=== PATIENT | female | born 1930 | race Caucasian/White ===

== ENCOUNTER 2018-06-21 17:09 | Inpatient (IN) ==
--- NOTE | 2018-06-21 17:26 | ED ---
HPI General Chief Complaint: Fall Stated Complaint: fall Time Seen by Provider: 06/21/18 17:13 Source: patient and EMS Mode of arrival: EMS Limitations: other (poor historian) History of Present Illness HPI narrative: 87 y/o female presents by ambulance after she had a witnessed fall in the lobby. She states her legs were just working too hard and she fell. She states she did not hit her head or blackout. She states she has pain to her left butt. She denies pain anywhere else. Pain is worse with movement. She denies other modifying factors. Quality of pain is sharp. Related Data Allergies Allergy/AdvReac Type Severity Reaction Status Date / Time No Known Allergies Allergy Uncoded 09/01/14 00:50 Review of Systems ROS: all other systems reviewed are negative PMFSH History History Provided By: Patient (Macular degeneration per EMS, dementia) Medical History Medical History Breast cancer (Acute) COPD (chronic obstructive pulmonary disease) (Acute) Dementia (Acute) Macular degeneration (Acute) Pelvis fracture (Acute) Smoker (Acute) Social History Social History Substance History: No History of Abuse Smoking Status: Current every day smoker Tobacco Type: Cigarettes How Often Do You Have a Drink Containing Alcohol: Monthly or less Recent Out of Country Travel within the Last 8 Weeks: No Exam Narrative Exam Narrative: General: 87 y/o patient in no apparent distress Skin: warm and dry Eyes: pupils are equal ENT: no septal hematoma NECK: no pain with palpation in midline over c spine Cardiovascular: Regular rate and rhythm Respiratory: normal respiratory effort noted, clear to auscultation bilaterally Abdomen: soft, nontender, nondistended Back: No step-offs, midline spine nontender with palpation Extremities: Pain with palpation of left hip, no lacerations over, neurovascularly intact, no pain with palpation of other joints Neuro: awake, moves all extremities, clear speech Course Initial Documented Vital Signs Temperature 97.5 F L 06/21/18 17:22 Pulse Rate 74 06/21/18 17:22 Respiratory Rate 18 06/21/18 17:22 Blood Pressure 152/68 H 06/21/18 17:22 Pulse Oximetry 94 L 06/21/18 17:22 Last Documented Vital Signs Temperature 97.5 F L 06/21/18 17:22 Pulse Rate 74 06/21/18 17:22 Respiratory Rate 18 06/21/18 17:22 Blood Pressure 152/68 H 06/21/18 17:22 Pulse Oximetry 94 L 06/21/18 17:22 Medical Decision Making MDM Narrative Medical decision making narrative: We will check basic blood work, trauma imaging and reevaluate. Medical Screen Exam Complete: Yes Emergency Medical Condition: Yes Differential Diagnosis Differential Diagnosis: Fracture, strain, sprain Imaging Data Radiologist's impression: Chest X-Ray 06/21/18 17:18 CONCLUSION: 1. Hyperinflation and chronic interstitial changes. 2. Lytic areas within both humeral heads of uncertain etiology. Recommend radiographs of the shoulders bilaterally. Femur X-Ray 06/21/18 17:18 CONCLUSION: No acute fracture left femur. Head CT 06/21/18 17:19 CONCLUSION: 1. No acute findings. . . Pelvis X-Ray 06/21/18 17:19 CONCLUSION: No definite fracture seen. Discharge Plan Discharge Disposition Patient Disposition: Sign Out(ED Internal Use Only) Physicians Team ED Provider: Shahnaz Yeung Status ED Status: With Doctor
--- NOTE | 2018-06-21 18:00 | XR ---
EXAM DATE: 06/21/2018 5:56 PM EST AGE/SEX: 87 years / Female INDICATIONS: Back and bilateral hip pain from a fall today. CLINICAL DATA: This is the patient's initial encounter. Patient reports that signs and symptoms have been present for 1 day and indicates a pain score of 10/10. MEDICAL/SURGICAL HISTORY: None. None. COMPARISON: No prior exams available for comparison. FINDINGS: A single AP view of the chest demonstrates hyperinflation with chronic interstitial changes. Mild car diomegaly The cardiomediastinal contours are unremarkable. Osseous structures are intact. Both humer al heads are lucent. CONCLUSION: 1. Hyperinflation and chronic interstitial changes. 2. Lytic areas within both humeral heads of uncertain etiology. Recommend radiographs of the shoulde rs bilaterally. Electronically signed by: Girish Vargas MD Board Certified Radiologist 06/21/2018 5:59 PM EST
--- NOTE | 2018-06-21 18:00 | XR ---
EXAM DATE: 06/21/2018 5:56 PM EST AGE/SEX: 87 years / Female INDICATIONS: Back and bilateral hip pain from a fall today. CLINICAL DATA: This is the patient's initial encounter. Patient reports that signs and symptoms have been present for 1 day and indicates a pain score of 10/10. MEDICAL/SURGICAL HISTORY: None. None. COMPARISON: [facility] [place], PELVIS AP 1V, 06/21/2018. . FINDINGS: Bony structures are intact and in normal alignment. Osseous density is normal. Soft tissues are unre markable. Vascular calcifications. No radiopaque foreign bodies seen. CONCLUSION: No acute fracture left femur. Electronically signed by: Girish Vargas MD Board Certified Radiologist 06/21/2018 5:59 PM EST
--- NOTE | 2018-06-21 18:01 | XR ---
EXAM DATE: 06/21/2018 5:56 PM EST AGE/SEX: 87 years / Female INDICATIONS: Back and bilateral hip pain from a fall today. CLINICAL DATA: This is the patient's initial encounter. Patient reports that signs and symptoms have been present for 1 day and indicates a pain score of 10/10. MEDICAL/SURGICAL HISTORY: None. None. COMPARISON: [facility] [place], FEMUR LEFT 2V, 06/21/2018. . FINDINGS: Examination of the pelvis demonstrates no evidence of fracture or dislocation. Bony mineralization i s normal. There is no widening of the sacroiliac joints. No foreign body is identified. Degenerativ e changes lower lumbar spine and both hips. CONCLUSION: No definite fracture seen. Electronically signed by: Girish Vargas MD Board Certified Radiologist 06/21/2018 6:00 PM EST
--- NOTE | 2018-06-21 18:29 | CT ---
EXAM DATE: 06/21/2018 6:27 PM EST AGE/SEX: 87 years / Female INDICATIONS: Trauma, head injury. CLINICAL DATA: This is the patient's initial encounter. Patient reports that signs and symptoms have been present for 1 day and indicates a pain score of 7/10. MEDICAL/SURGICAL HISTORY: Carcinoma, breast. Chronic obstructive pulmonary disease. None. RADIATION DOSE: 56.35 CTDI (mGy) COMPARISON: [facility], CT BRAIN W/O CONTRAST, 04/03/2018. . TECHNIQUE: CT of the head without contrast. Using automated exposure control and adjustment of the mA and/or kV according to patient size, radiation dose was kept as low as reasonably achievable to ob tain optimal diagnostic quality images. DICOM format image data is available electronically for revi ew and comparison. FINDINGS: Cerebrum: The ventricles are normal for age. No evidence of midline shift, mass lesion, hemorrhage or acute infarction. No extraaxial fluid collections are seen. Posterior Fossa: The cerebellum and brainstem are intact. The 4th ventricle is midline. The cerebe llopontine angle is unremarkable. Extracranial: The visualized portion of the orbits is intact. Skull: The calvaria is intact. No evidence of skull fracture. CONCLUSION: 1. No acute findings. . . Electronically signed by: Fidel Campbell MD Board Certified Radiologist 06/21/2018 6:28 PM EST
[2018-06-21 19:38] LABS: Baso % (Auto) 0.2 % (0.0-2.0); Eos # (Auto) 0.1 th/mm3 (0.0-0.4); Eos % (Auto) 0.7 % (0.0-4.0); Hematocrit 37.8 % (35.0-46.0); Hemoglobin 12.9 gm/dL (11.6-15.3); Lymph % (Auto) 9.7 % (9.0-44.0); Mean Corpuscular HGB Conc 34.1 % (32.0-36.0); Mean Corpuscular Hemoglobin 30.2 pg (27.0-34.0); Mean Corpuscular Volume 88.7 fL (80.0-100.0); Mean Platelet Volume 7.7 fL (7.0-11.0); Mono # (Auto) 0.8 th/mm3 (0.0-0.9); Mono % (Auto) 7.9 % (0.0-8.0); Neut # (Auto) 8.4 th/mm3 (1.8-7.7); Neut % (Auto) 81.5 % (16.0-70.0); Platelet Count 315 th/mm3 (150-450); Red Blood Count 4.26 mil/mm3 (4.00-5.30); Red Cell Distribution Width 13.9 % (11.6-17.2); White Blood Count 10.3 th/mm3 (4.0-11.0)
--- NOTE | 2018-06-21 19:39 | XR ---
EXAM DATE: 06/21/2018 7:31 PM EST AGE/SEX: 87 years / Female INDICATIONS: Lytic areas found on previous chest x-ray on bilateral humeral heads. CLINICAL DATA: This is the patient's subsequent encounter. Patient reports that signs and symptoms h ave been present for 1 day and indicates a pain score of 0/10. MEDICAL/SURGICAL HISTORY: Carcinoma, lung. Chronic obstructive pulmonary disease. None. COMPARISON: No prior exams available for comparison. FINDINGS: Bony structures are intact and in normal alignment. Joints are intact without dislocation or signifi cant arthropathy. Osseous density is decreased. Soft tissues are unremarkable. No radiopaque foreig n bodies seen. CONCLUSION: No acute findings. Lucencies are probably related to patchy osteopenia. Electronically signed by: Fidel Campbell MD Board Certified Radiologist 06/21/2018 7:38 PM EST
--- NOTE | 2018-06-21 19:39 | XR ---
EXAM DATE: 06/21/2018 7:32 PM EST AGE/SEX: 87 years / Female INDICATIONS: Lytic areas found on previous chest x-ray on bilateral humeral heads. CLINICAL DATA: This is the patient's subsequent encounter. Patient reports that signs and symptoms h ave been present for 1 day and indicates a pain score of 0/10. MEDICAL/SURGICAL HISTORY: Carcinoma, lung. Chronic obstructive pulmonary disease. None. COMPARISON: [facility] [place], [place] HEAD W/O CONTRAST, 06/21/2018. . FINDINGS: Bony structures are intact and in normal alignment. Joints are intact without dislocation or signifi cant arthropathy. Osseous density is decreased with patchy osteopenia. Soft tissues are unremarkable . No radiopaque foreign bodies seen. CONCLUSION: No acute findings. Lucencies are probably related to patchy osteopenia. Electronically signed by: Fidel Campbell MD Board Certified Radiologist 06/21/2018 7:38 PM EST
--- NOTE | 2018-06-21 19:49 | CT ---
EXAM DATE: 06/21/2018 7:41 PM EST AGE/SEX: 87 years / Female INDICATIONS: Fall. Left hip pain with possible fracture. CLINICAL DATA: This is the patient's initial encounter. Patient reports that signs and symptoms have been present for 1 day and indicates a pain score of 10/10. MEDICAL/SURGICAL HISTORY: Carcinoma, breast. Chronic obstructive pulmonary disease. Diabetes. . RADIATION DOSE: 19.11 CTDI (mGy) COMPARISON: No prior exams available for comparison. TECHNIQUE: Multiple contiguous axial images were acquired using a multirow detector CT scanner witho ut contrast. Multiplanar reconstruction was performed in the sagittal and coronal planes. Using aut omated exposure control and adjustment of the mA and/or kV according to patient size, radiation dose was kept as low as reasonably achievable to obtain optimal diagnostic quality images. DICOM format i mage data is available electronically for review and comparison. FINDINGS: There is a fracture of the superior pubic ramus with minimal displacement. Also probable acute fractu res on both sides of the pubic symphysis relatively nondisplaced. There is an old fracture of the inf erior pubic ramus. Proximal femur appears intact. CONCLUSION: 1. Nondisplaced fractures at the pubic symphysis and left superior pubic ramus as above. No fracture identified at the left hip. Old fracture inferior pubic ramus. Electronically signed by: Fidel Campbell MD Board Certified Radiologist 06/21/2018 7:47 PM EST
[2018-06-21 19:50] LABS: Calcium 9.8 mg/dL (8.5-10.1); Carbon Dioxide 26.9 meq/L (21.0-32.0); Potassium 4.3 meq/L (3.5-5.1)
[2018-06-21 19:53] LABS: Activated Partial Thrombo Time 26.1 sec (23.4-31.7); INR 0.9 Ratio; Prothrombin Time 9.3 sec (9.8-11.6)
[2018-06-21] MEDS ORDERED: Morphine Sulfate Inj 2 MG/ML Vial IV.PUSH ONE (19:55)
[2018-06-21 19:56] LABS: Bilirubin,Urine Negative (Negative); Clarity,Urine Clear (Clear); Color,Urine Yellow (Yellw/Straw); Glucose,Urine (UA) Negative (Negative); Leukocyte Esterase,Urine Negative (Negative); Mucus,Urine Few /lpf (Occasional); Nitrite,Urine Negative (Negative); Specific Gravity,Urine 1.009 (1.002-1.035)
[2018-06-21] MEDS ORDERED: Acetaminophen 325 MG Tablet PO PRN (21:19)
[2018-06-21] MEDS ORDERED: Bisacodyl 10 MG Supp RECTAL PRN (21:19)
[2018-06-21] MEDS ORDERED: Morphine Sulfate Inj 2 MG/ML Vial IV.PUSH PRN (21:21)
[2018-06-21] MEDS ORDERED: Naloxone Inj 0.4 MG/ML Vial IV.PUSH PRN (21:21)
--- NOTE | 2018-06-21 21:23 | P.HPIM ---
History of Present Illness Primary Care Physician: Marisol Gonzalez DO History of Present Illness: This is a 87-year-old female with a PMH of Dementia , COPD, h/o Breast CA and Tobacco Abuse who was brought to the ER from SNF after witnessed fall. Pt reports legs "stopped working" and had mechanical fall , denies LOC or head trauma. +left buttock/hip pain, moderate, 8/10, non- radiating, worse w/ movement. On arrival, BP 152/68, HR 74, O2 sat 94% on RA, Afebrile. CBC unremarkable. INR 0.9. Chemistry essentially unremarkable except for GFR 77. UA negative for UTI. CXR with hyperinflation, lytic areas of bilateral humeral heads. Femur X-ray negative. CT Head negative. Pelvis X- ray with no definite fracture. Shoulder X-rays with no acute findings, lucencies probably related to patchy osteopenia. T Hip with nondisplaced fractures of pubic symphysis and left superior pubic ramus. Pt attempted ambulation in ER, however unsuccessful due to significant pain. Diagnosis (1) Closed fracture of pubic ramus: (2) Fall: (3) Dehydration: (4) HTN (hypertension): (5) COPD (chronic obstructive pulmonary disease): (6) Tobacco abuse: Review of Systems PAST FAMILY HISTORY: Reviewed. No h/o DM or CAD Review of Systems: all other systems reviewed are negative [facility] Medical History Medical History Breast cancer (Acute) COPD (chronic obstructive pulmonary disease) (Acute) Dementia (Acute) Macular degeneration (Acute) Pelvis fracture (Acute) Smoker (Acute) Social History Social History Substance History: No History of Abuse Smoking Status: Current every day smoker Tobacco Type: Cigarettes How Often Do You Have a Drink Containing Alcohol: Monthly or less Recent Out of Country Travel within the Last 8 Weeks: No Immunization History Tetanus Immunization: Unsure Medications and Allergies Allergies Allergy/AdvReac Type Severity Reaction Status Date / Time erythromycin base Allergy Hives Verified 06/21/18 21:38 Home Medications Medication Instructions Recorded Confirmed Type alendronate 70 mg PO QWEEK 06/21/18 06/21/18 History aspirin [Aspirin Low Dose] 81 mg PO DAILY 06/21/18 06/21/18 History donepezil [Aricept] 10 mg PO DAILY 06/21/18 06/21/18 History levothyroxine 50 mcg PO DAILY 06/21/18 06/21/18 History Active Medications: Active Medications Acetaminophen (Tylenol) 650 mg PO Q4H PRN PRN Reason: Temp > 100.4 Hydrocodone Bitart/Acetaminophen ([place] 5/325) 1 tab PO Q4H PRN PRN Reason: PAIN SCALE 3 TO 5 Al Hydroxide/Mg Hydroxide (Milk Of Magnesia Liq) 30 ml PO Q12H PRN PRN Reason: Mild Constipation Bisacodyl (Dulcolax Supp) 10 mg RECTAL DAILY PRN PRN Reason: SEVERE CONSITIPATION Sodium Chloride (Ns Inj) 1,000 mls @ 100 mls/hr IV.CONT .Q10H CORINNE Lactulose (Lactulose Liq) 30 ml PO DAILY PRN PRN Reason: SEVERE CONSITIPATION Levothyroxine Sodium (Synthroid) 50 mcg PO DAILY [facility] Morphine Sulfate (Morphine Inj) 2 mg IV.PUSH Q4H PRN PRN Reason: PAIN SCALE 6 TO 10 Naloxone HCl (Narcan Inj) 0.4 mg IV.PUSH UNSCH PRN PRN Reason: SEE LABEL COMMENTS Non-Formulary Medication (Donepezil [Aricept]) 10 mg PO DAILY [facility] Senna/Docusate Sodium (Herminia-Colace) 1 tab PO BID [facility] Sennosides (Senokot) 17.2 mg PO Q12H PRN PRN Reason: Moderate Constipation Sodium Chloride (Ns Flush) 2 ml IV.FLUSH UNSCH PRN PRN Reason: FLUSH AFTER USING IV ACCESS Sodium Chloride (Ns Flush) 2 ml IV.FLUSH BID [facility] Physical Exam Vital signs: Vital Signs 06/21/18 17:17 06/21/18 17:22 06/21/18 17:28 Temperature 97.5 F L Pulse Rate 74 80 Respiratory Rate 18 20 Blood Pressure 152/68 H 148/60 H Pulse Oximetry 95 94 L 96 06/21/18 21:22 Temperature Pulse Rate 74 Respiratory Rate 18 Blood Pressure 153/62 H Pulse Oximetry 95 Intake & Output 06/21/18 06/21/18 06/22/18 06:59 18:59 06:59 Weight 63.503 kg Narrative: PE: GENERAL: Elderly female in no acute distress. SKIN: Focused skin assessment warm and dry. HEENT: PERRLA, EOMI. No scleral icterus or conjunctival pallor. No lid lag or facial droop. CARDIOVASCULAR: Regular rate and rhythm. No obvious murmurs to auscultation. No chest tenderness to palpation. RESPIRATORY: No obvious rhonchi or wheezing. Clear to auscultation. Breath sounds equal bilaterally. GASTROINTESTINAL: Abdomen soft, non-tender, nondistended. BS normal. MUSCULOSKELETAL: Extremities without clubbing, cyanosis, or edema. No obvious deformities. Decreased ROM of LLE due to pain. NEUROLOGICAL: Awake, alert and oriented x4. No focal neurologic deficits. Moving both upper and lower extremities spontaneously. PSYCHIATRIC: Appropriate mood and affect. Insight and judgment normal. Results Labs CBC & Chem 7: 06/21/18 18:40 06/21/18 18:40 Imaging Impressions Chest X-Ray 06/21/18 17:18 CONCLUSION: 1. Hyperinflation and chronic interstitial changes. 2. Lytic areas within both humeral heads of uncertain etiology. Recommend radiographs of the shoulders bilaterally. Femur X-Ray 06/21/18 17:18 CONCLUSION: No acute fracture left femur. Head CT 06/21/18 17:19 CONCLUSION: 1. No acute findings. . . Pelvis X-Ray 06/21/18 17:19 CONCLUSION: No definite fracture seen. Shoulder X-Ray 06/21/18 18:05 CONCLUSION: No acute findings. Lucencies are probably related to patchy osteopenia. Shoulder X-Ray 06/21/18 18:05 CONCLUSION: No acute findings. Lucencies are probably related to patchy osteopenia. Hip CT 06/21/18 19:02 CONCLUSION: 1. Nondisplaced fractures at the pubic symphysis and left superior pubic ramus as above. No fracture identified at the left hip. Old fracture inferior pubic ramus. Caprini VTE Risk Assessment Caprini VTE Risk Assessment: No/Low Risk (score <= 1) Caprini Risk Assessment Model: Point Value = 1 Point Value = 2 Point Value = 3 Point Value = 5 Age 41-60 Minor surgery BMI > 25 kg/m2 Swollen legs Varicose veins or History of unexplained or recurrent spontaneous Oral contraceptives or hormone replacement Sepsis (< 1 month) Serious lung disease, including pneumonia (< 1 month) Abnormal pulmonary function Acute myocardial infarction Congestive heart failure (< 1 month) History of inflammatory bowel disease Medical patient at bed rest Age 61-74 Arthroscopic surgery Major open surgery (> 45 min) Laparoscopic surgery (> 45 min) Malignancy Confined to bed (> 72 hours) Immobilizing plaster cast Central venous access Age >= 75 History of VTE Family history of VTE Factor V Leiden Prothrombin [id number] Lupus anticoagulant Anticardiolipin antibodies Elevated serum homocysteine Heparin-induced thrombocytopenia Other congenital or acquired thrombophilia Stroke (< 1 month) Elective arthroplasty Hip, pelvis, or leg fracture Acute spinal cord injury (< 1 month) Prophylaxis Regimen: Total Risk Factor Score Risk Level Prophylaxis Regimen 0-1 Low Early ambulation 2 Moderate Order ONE of the following: *Sequential Compression Device (SCD) *Heparin 5000 units SQ BID 3-4 Higher Order ONE of the following medications: *Heparin 5000 units SQ TID *Enoxaparin/Lovenox 40 mg SQ daily (WT < 150 kg, CrCl > 30 mL/min) *Enoxaparin/Lovenox 30 mg SQ daily (WT < 150 kg, CrCl > 10-29 mL/min) *Enoxaparin/Lovenox 30 mg SQ BID (WT < 150 kg, CrCl > 30 mL/min) AND/OR *Sequential Compression Device (SCD) 5 or more Highest Order ONE of the following medications: *Heparin 5000 units SQ TID (Preferred with Epidurals) *Enoxaparin/Lovenox 40 mg SQ daily (WT < 150 kg, CrCl > 30 mL/min) *Enoxaparin/Lovenox 30 mg SQ daily (WT < 150 kg, CrCl > 10-29 mL/min) *Enoxaparin/Lovenox 30 mg SQ BID (WT < 150 kg, CrCl > 30 mL/min) AND *Sequential Compression Device (SCD) Assessment and Plan (1) Closed fracture of pubic ramus: Code(s): S32.599A - Other specified fracture of unspecified pubis, initial encounter for closed fracture Status: Acute (2) Fall: Code(s): W19.XXXA - Unspecified fall, initial encounter Status: Acute (3) Dehydration: Code(s): E86.0 - Dehydration Status: Acute (4) HTN (hypertension): Code(s): I10 - Essential (primary) hypertension Status: Acute (5) COPD (chronic obstructive pulmonary disease): Code(s): J44.9 - Chronic obstructive pulmonary disease, unspecified Status: Acute (6) Tobacco abuse: Code(s): Z72.0 - Tobacco use Status: Acute Plan A/P 1. Fall: s/p witnessed mechanical fall at SNF, no LOC or head trauma reported , no other injuries noted. CT Head w/ no acute findings. 2. Pubic Fx: Pelvis X-ray w/ no acute fracture, however CT Hip w/ nondisplaced fractures at pubic symphysis and left superior pubic ramus, pt attempted ambulation in ER, however unsuccessful due to significant pain. Consult Ortho for eval/recommendations, PT for eval/tx, analgesics/antiemetics as needed. 3. HTN: Uncontrolled, BP 150's, not on antihypertensives at home, likely related to pain complaints, monitor BP, antihypertensives as needed for BP >180 , anagelsics. 4. Dehydration: GFR 77, IVF for hydration, monitor I/O, repeat labs in am, U/ a negative for UTI. 5. COPD: Chronic Respiratory Failure, DuoNeb prn 6. Tobacco Abuse: Ongoing, counselled, NicoDerm prn if needed. 7. DVT Prophylaxis: SCD/Teds 8. Social work for d/c planning as needed. 9. Case discussed w/ ER physician at length, labs/records/imaging reviewed by me. _ (1) Closed fracture of pubic ramus Qualifiers: Encounter type: Fracture healing: Laterality:
[2018-06-22] MEDS: Sod Chloride 0.9% Inj 1,000 ML IV.CONT SCH ×3 (01:55→19:40)
--- NOTE | 2018-06-22 06:59 | P.CONOP ---
[facility] Orthopedics Consult Note - [facility] Consult date: 06/22/18 Chief complaint: Pubis FX Narrative: Anusha is an 87-year-old female with a history of dementia, COPD, breast cancer, and tobacco abuse. She has a fall. She states that the fall was a couple of days ago. She has had difficulty walking. She has pain in her left hip and groin when she walks. She is brought to the emergency room. CT scan revealed a left pubic rami fractures. She is currently on the orthopedic floor. She has no pain at rest. She has pain with movement of her hip or with weightbearing. She denies any hip pain prior to her fall. Review of Systems Patient denies fevers, chills, weight loss, headache, visual changes, hearing loss, chest pain, palpitations, shortness of breath, nausea, vomiting, no urinary changes, diarrhea, bowel changes, neck pain, back pain, skin rashes, weakness of extremities, easy bleeding, enlarged lymph nodes, numbness of extremities, anxiety, or depression. She complains of left groin pain with weightbearing Patient's social history, past medical history, and family history were reviewed on chart and with patient. [facility] - History History Provided By: Patient - Medical History Medical History: Medical History (Last Reviewed 06/22/18 @ 06:57 by Freddy Ga MD) Breast cancer COPD (chronic obstructive pulmonary disease) Dementia Macular degeneration Pelvis fracture Smoker - Family History Family History: Family History (Last Updated 06/22/18 @ 06:57 by Freddy Ga MD) Other Family history non-contributory - Social History I have reviewed the patient's Social History: Yes - Tobacco History Second Hand Smoke Exposure: No Tobacco Use In Past 30 Days: Yes Smoking Status: Current every day smoker Tobacco Type: Cigarettes - Alcohol History How Often Do You Have a Drink Containing Alcohol: 2 to 4 times a month - Substance Use History Substance History: No History of Abuse - Travel History Recent Travel Out of the Country Within the Last 8 Weeks: No - Immunization History Tetanus Immunization: Unsure Hx Influenza Vaccine This Season: Yes Medications and Allergies Active Medications: Active Medications Acetaminophen (Tylenol) 650 mg PO Q4H PRN PRN Reason: Temp > 100.4 Hydrocodone Bitart/Acetaminophen ([place] 5/325) 1 tab PO Q4H PRN PRN Reason: PAIN SCALE 3 TO 5 Al Hydroxide/Mg Hydroxide (Milk Of Magnesia Liq) 30 ml PO Q12H PRN PRN Reason: Mild Constipation Albuterol (Duoneb Neb (Prn)) 1 ampul NEB Q4HR NEB PRN PRN Reason: SOB/WHEEZING Bisacodyl (Dulcolax Supp) 10 mg RECTAL DAILY PRN PRN Reason: SEVERE CONSITIPATION Donepezil HCl (Aricept) 10 mg PO DAILY [facility] Sodium Chloride (Ns Inj) 1,000 mls @ 100 mls/hr IV.CONT .Q10H [facility] Last Admin: 06/22/18 01:55 Dose: 100 mls/hr Lactulose (Lactulose Liq) 30 ml PO DAILY PRN PRN Reason: SEVERE CONSITIPATION Levothyroxine Sodium (Synthroid) 50 mcg PO DAILY@0600 [facility] Morphine Sulfate (Morphine Inj) 2 mg IV.PUSH Q4H PRN PRN Reason: PAIN SCALE 6 TO 10 Naloxone HCl (Narcan Inj) 0.4 mg IV.PUSH UNSCH PRN PRN Reason: SEE LABEL COMMENTS Ondansetron HCl (Zofran Inj) 4 mg IV.PUSH Q6H PRN PRN Reason: NAUSEA OR VOMITING Senna/Docusate Sodium ([place]-Colace) 1 tab PO BID [facility] Sennosides (Senokot) 17.2 mg PO Q12H PRN PRN Reason: Moderate Constipation Sodium Chloride (Ns Flush) 2 ml IV.FLUSH UNSCH PRN PRN Reason: FLUSH AFTER USING IV ACCESS Sodium Chloride (Ns Flush) 2 ml IV.FLUSH BID [facility] Sodium Chloride (Ns Flush) 2 ml IV.FLUSH PRN PRN PRN Reason: FLUSH AFTER USING IV ACCESS Allergies Allergy/AdvReac Type Severity Reaction Status Date / Time erythromycin base Allergy Hives Verified 06/21/18 21:38 Home Medications Medication Instructions Recorded Confirmed Type alendronate 70 mg PO QWEEK 06/21/18 06/21/18 History aspirin [Aspirin Low Dose] 81 mg PO DAILY 06/21/18 06/21/18 History donepezil [Aricept] 10 mg PO DAILY 06/21/18 06/21/18 History levothyroxine 50 mcg PO DAILY 06/21/18 06/21/18 History Exam Vital signs: Vital Signs 06/21/18 17:17 06/21/18 17:22 06/21/18 17:28 Temperature 97.5 F L Pulse Rate 74 80 Respiratory Rate 18 20 Blood Pressure 152/68 H 148/60 H Pulse Oximetry 95 94 L 96 06/21/18 21:22 06/21/18 22:54 06/21/18 22:57 Temperature 97.7 F 97.7 F Pulse Rate 74 73 74 Respiratory Rate 18 18 18 Blood Pressure 153/62 H 137/65 137/65 Pulse Oximetry 95 93 L 97 06/22/18 04:00 Temperature 97.5 F L Pulse Rate 72 Respiratory Rate 18 Blood Pressure 130/67 Pulse Oximetry 94 L Intake & Output 06/21/18 06/21/18 06/22/18 06:59 18:59 06:59 Weight 63.503 kg 54.683 kg Other: Date of Last Bowel Movement 06/19/18 Weight On Admission 54.638 kg Narrative: merlyn is an 87-year-old female. General: Awake and alert. No acute distress. Appears very thin Head: Normocephalic, atraumatic pupils are equal Neck: Soft, nontender, trachea midline Abdomen: Soft, nondistended Examination of right arm reveals no pain or deformity with shoulder, elbow, or wrist motion. Skin is intact. Radial pulse is palpable. Normal capillary refill in fingers. Sensation is intact in radial, ulnar, and median nerve distributions. Front End Ui Developer strength is +5. No lymphadenopathy noted. Examination of left arm reveals no pain or deformity with shoulder, elbow, or wrist motion. Skin is intact. Radial pulse is palpable. Normal capillary refill in fingers. Sensation is intact in radial, ulnar, and median nerve distributions. Front End Ui Developer strength is +5. No lymphadenopathy noted. Examination of left lower extremity reveals no pain or deformity with knee or ankle motion. She does have groin pain with hip range of motion. Skin is intact. Dorsalis pedis pulse is palpable. Normal capillary refill and feet. Thigh and calf compartments are soft. No lymphadenopathy noted. +5 strength of ankle dorsiflexion and plantarflexion. Sensation is intact in left foot. Examination of right lower extremity reveals no pain or deformity with hip, knee , or ankle motion. Skin is intact. Dorsalis pedis pulse is palpable. Normal capillary refill and feet. Thigh and calf compartments are soft. No lymphadenopathy noted. +5 strength of ankle dorsiflexion and plantarflexion. Sensation is intact in right foot. Results - Labs Result Diagrams: 06/21/18 18:40 06/21/18 18:40 Labs: Laboratory Results - last 24 hr 06/21/18 06/21/18 02 18:40 18:40 18:40 WBC 10.3 RBC 4.26 Hgb 12.9 Hct 37.8 MCV 88.7 MCH 30.2 MCHC 34.1 RDW 13.9 Plt Count 315 MPV 7.7 Neut % (Auto) 81.5 H Lymph % (Auto) 9.7 [place] % (Auto) 7.9 Eos % (Auto) 0.7 Baso % (Auto) 0.2 Neut # (Auto) 8.4 H Lymph # (Auto) 1.0 [place] # (Auto) 0.8 Eos # (Auto) 0.1 Baso # (Auto) 0.0 WBC Differential . Differential Comment Auto diff final PT 9.3 L INR 0.9 APTT 26.1 Sodium 135 L Potassium 4.3 Chloride 102 Carbon Dioxide 26.9 Anion Gap 6 BUN 16 Creatinine 0.72 Estimated GFR 77 L Random Glucose 114 H Calcium 9.8 Urine Color Urine Clarity Urine pH Ur Specific [place] Urine Protein Urine Glucose (UA) Urine Ketones Urine Occult Blood Urine Nitrate Urine Bilirubin Urine Urobilinogen Ur Leukocyte Esterase Urine RBC Urine WBC Urine Mucus Ur Microscopic Review 06/21/18 18:40 WBC RBC Hgb Hct MCV MCH MCHC RDW Plt Count MPV Neut % (Auto) Lymph % (Auto) [place] % (Auto) Eos % (Auto) Baso % (Auto) Neut # (Auto) Lymph # (Auto) [place] # (Auto) Eos # (Auto) Baso # (Auto) WBC Differential Differential Comment PT INR APTT Sodium Potassium Chloride Carbon Dioxide Anion Gap BUN Creatinine Estimated GFR Random Glucose Calcium Urine Color Yellow Urine Clarity Clear Urine pH 6.0 Ur Specific [place] 1.009 Urine Protein Negative Urine Glucose (UA) Negative Urine Ketones Negative Urine Occult Blood Negative Urine Nitrate Negative Urine Bilirubin Negative Urine Urobilinogen Less than 2 Ur Leukocyte Esterase Negative Urine RBC Less than 1 Urine WBC Less than 1 Urine Mucus Few H Ur Microscopic Review Not Reportable - Diagnostic results Imaging: Impressions Chest X-Ray 06/21/18 17:18 CONCLUSION: 1. Hyperinflation and chronic interstitial changes. 2. Lytic areas within both humeral heads of uncertain etiology. Recommend radiographs of the shoulders bilaterally. Femur X-Ray 06/21/18 17:18 CONCLUSION: No acute fracture left femur. Head CT 06/21/18 17:19 CONCLUSION: 1. No acute findings. . . Pelvis X-Ray 06/21/18 17:19 CONCLUSION: No definite fracture seen. Shoulder X-Ray 06/21/18 18:05 CONCLUSION: No acute findings. Lucencies are probably related to patchy osteopenia. Shoulder X-Ray 06/21/18 18:05 CONCLUSION: No acute findings. Lucencies are probably related to patchy osteopenia. Hip CT 06/21/18 19:02 CONCLUSION: 1. Nondisplaced fractures at the pubic symphysis and left superior pubic ramus as above. No fracture identified at the left hip. Old fracture inferior pubic ramus. Hip CT: report reviewed, image reviewed Assessment and Plan - Assessment and Plan Merlyn is an 87-year-old female who had a fall resulting left pubic rami fractures. Treatment options were discussed. I would recommend conservative treatment. She may weight-bear as tolerated. Physical therapy will be consulted. She would benefit from calcium and vitamin D supplementation. She will also need future bone density test to check for osteoporosis. She is in agreement with this plan. All questions were answered. A mid-level provider in my office (nurse practitioner or physician phys assistant) may see this patient on follow-up visits and continue to implement the objectives of this plan including: Starting or adjusting medications, injections , cast application, orthotics, brace application, physical therapy, radiological studies (including x-ray, MRI, CT, ultrasound, bone scan), vascular studies, neurologic studies, specialist consultation, and proceeding with surgical management, as appropriate.
[2018-06-22 07:17] LABS: Baso % (Auto) 0.5 % (0.0-2.0); Eos # (Auto) 0.1 th/mm3 (0.0-0.4); Eos % (Auto) 1.7 % (0.0-4.0); Hematocrit 34.1 % (35.0-46.0); Hemoglobin 11.4 gm/dL (11.6-15.3); Lymph # (Auto) 0.8 th/mm3 (1.0-4.8); Lymph % (Auto) 13.3 % (9.0-44.0); Mean Corpuscular HGB Conc 33.6 % (32.0-36.0); Mean Corpuscular Volume 89.3 fL (80.0-100.0); Mean Platelet Volume 7.9 fL (7.0-11.0); Mono # (Auto) 0.6 th/mm3 (0.0-0.9); Neut # (Auto) 4.3 th/mm3 (1.8-7.7); Neut % (Auto) 74.5 % (16.0-70.0); Platelet Count 263 th/mm3 (150-450); Red Blood Count 3.82 mil/mm3 (4.00-5.30); Red Cell Distribution Width 14.1 % (11.6-17.2); White Blood Count 5.7 th/mm3 (4.0-11.0)
[2018-06-22 07:53] LABS: Alanine Aminotransferase 19 U/L (10-53); Alkaline Phosphatase 65 U/L (45-117); Anion Gap 7 meq/L (5-15); Aspartate Aminotransferase 21 U/L (15-37); Blood Urea Nitrogen 13 mg/dL (7-18); Carbon Dioxide 25.3 meq/L (21.0-32.0); Chloride 106 meq/L (98-107); Glomerular Filtration Rate Greater Than 89 mL/min (>89); Glucose,Random 95 mg/dL (74-106); Potassium 3.9 meq/L (3.5-5.1); Sodium 138 meq/L (136-145); Total Protein 6.2 g/dL (6.4-8.2)
[2018-06-22] MEDS: Senna/Docusate Sodium 8.6/50 MG Tablet PO SCH ×2 (10:41→21:33)
--- NOTE | 2018-06-22 13:29 | P.PNIM ---
Subjective Interval history: Patient seen sitting up in bed. She is just finished breakfast. Tolerating meals but does not have much of an appetite. Moderately painful, worse when she is sitting up. No fever or chills. No chest pain or shortness of breath. Pleasant but does appear to be a moderately poor historian. Physical Exam Vital signs: Vital Signs 06/21/18 17:17 06/21/18 17:22 06/21/18 17:28 Temperature 97.5 F L Pulse Rate 74 80 Respiratory Rate 18 20 Blood Pressure 152/68 H 148/60 H Pulse Oximetry 95 94 L 96 06/21/18 21:22 06/21/18 22:54 06/21/18 22:57 Temperature 97.7 F 97.7 F Pulse Rate 74 73 74 Respiratory Rate 18 18 18 Blood Pressure 153/62 H 137/65 137/65 Pulse Oximetry 95 93 L 97 06/22/18 04:00 06/22/18 08:00 Temperature 97.5 F L 98.0 F Pulse Rate 72 72 Respiratory Rate 18 22 Blood Pressure 130/67 132/60 Pulse Oximetry 94 L 93 L Intake & Output 06/21/18 06/22/18 06/22/18 18:59 06:59 18:59 Intake Total 1000 / 1000 Balance 1000 / 1000 Weight 63.503 kg 54.683 kg Intake: IV 1000 / 1000 NS Inj 1,000 ML @ 100 mls/hr IV 1000 / 1000 .CONT .Q10H [facility] Rx#:[id number] Other: Date of Last Bowel Movement 06/19/18 Weight On Admission 54.638 kg Narrative: GENERAL: Well-nourished, well-developed adult female in no obvious distress. SKIN: Focused assessment warm and dry. HEAD: Atraumatic. Normocephalic. CARDIOVASCULAR: Regular rate and rhythm. RESPIRATORY: No accessory muscle use. Clear to auscultation. Breath sounds equal bilaterally. GASTROINTESTINAL: Abdomen soft, non-tender, non-distended. Positive bowel sounds. MUSCULOSKELETAL: Extremities without clubbing, cyanosis, or edema. No obvious deformities. Limited lower extremity range of motion due to pain. Toes warm and well-perfused bilaterally. NEUROLOGICAL: Awake and alert. No obvious cranial nerve deficits. Motor grossly within normal limits. Normal speech. PSYCHIATRIC: Pleasant. Poor historian. Results Labs CBC & Chem 7: 06/22/18 06:20 06/22/18 06:20 Imaging Imaging: Impressions Chest X-Ray 06/21/18 17:18 CONCLUSION: 1. Hyperinflation and chronic interstitial changes. 2. Lytic areas within both humeral heads of uncertain etiology. Recommend radiographs of the shoulders bilaterally. Femur X-Ray 06/21/18 17:18 CONCLUSION: No acute fracture left femur. Head CT 06/21/18 17:19 CONCLUSION: 1. No acute findings. . . Pelvis X-Ray 06/21/18 17:19 CONCLUSION: No definite fracture seen. Shoulder X-Ray 06/21/18 18:05 CONCLUSION: No acute findings. Lucencies are probably related to patchy osteopenia. Shoulder X-Ray 06/21/18 18:05 CONCLUSION: No acute findings. Lucencies are probably related to patchy osteopenia. Hip CT 06/21/18 19:02 CONCLUSION: 1. Nondisplaced fractures at the pubic symphysis and left superior pubic ramus as above. No fracture identified at the left hip. Old fracture inferior pubic ramus. Assessment and Plan (1) Closed fracture of pubic ramus: Code(s): S32.599A - Other specified fracture of unspecified pubis, initial encounter for closed fracture Status: Acute (2) Fall: Code(s): W19.XXXA - Unspecified fall, initial encounter Status: Acute (3) Dehydration: Code(s): E86.0 - Dehydration Status: Acute (4) HTN (hypertension): Code(s): I10 - Essential (primary) hypertension Status: Acute (5) COPD (chronic obstructive pulmonary disease): Code(s): J44.9 - Chronic obstructive pulmonary disease, unspecified Status: Acute (6) Tobacco abuse: Code(s): Z72.0 - Tobacco use Status: Acute Plan History of Present Illness: This is a 87-year-old female with a PMH of Dementia , COPD, h/o Breast CA and Tobacco Abuse who was brought to the ER from SNF after witnessed fall. Left pubic rami fracture; s/p mechanical fall -Orthopedics consulted; appreciate assistance -No intervention indicated at this time. Conservative management. -Pain control as needed -PT ordered Hypertension; acute -Likely related to pain; now improved with pain control -No scheduled meds; PRN antihypertensives available if systolic greater than 180 COPD; chronic -DuoNeb's -O2 as needed. Titrate to maintain sats between 82 and 96% Osteoporosis -Follow-up as outpatient -Add calcium and vitamin D Dehydration; resolved -IVF fluid; now stopped -UA-negative for UTI Tobacco abuse -Counseled cessation -NicoDerm if needed DVT prophylaxis: SCD/teds Discharge planning: Patient lives at a SNF; will likely return there if rehab is available _ (1) Closed fracture of pubic ramus Qualifiers: Encounter type: Fracture healing: Laterality:
[2018-06-22] MEDS: Levothyroxine 50 MCG Tablet PO SCH (19:40)
[2018-06-23] MEDS: Levothyroxine 50 MCG Tablet PO SCH (05:47)
[2018-06-23] MEDS: Senna/Docusate Sodium 8.6/50 MG Tablet PO SCH ×2 (08:20→20:31)
--- NOTE | 2018-06-23 14:20 | P.PNIM ---
Subjective Interval history: Patient is seen sitting up in chair. She has had a complaint of constipation. Nursing tells me they have offered all products on the bowel regimen and patient has refused them. Did take senna eventually; encouraged patient to except more aggressive treatment. No other new complaints. Physical Exam Vital signs: Vital Signs 06/22/18 16:00 06/22/18 20:20 06/22/18 23:45 Temperature 97.9 F 98.6 F 98.4 F Pulse Rate 71 75 75 Respiratory Rate 22 20 18 Blood Pressure 164/74 H 156/70 H 129/72 Pulse Oximetry 95 95 93 L 06/23/18 05:00 06/23/18 08:00 06/23/18 09:04 Temperature 98.9 F 98.0 F Pulse Rate 72 74 Respiratory Rate 20 22 18 Blood Pressure 164/70 H 163/62 H Pulse Oximetry 95 97 06/23/18 12:00 Temperature 97.4 F L Pulse Rate 70 Respiratory Rate 22 Blood Pressure 129/79 Pulse Oximetry 81 L Intake & Output 06/22/18 06/23/18 06/23/18 18:59 06:59 18:59 Intake Total 1480 / 1480 1000 / 1000 Output Total 1000 / 1000 Balance 480 / 480 1000 / 1000 Weight 54.3 kg Intake: IV 1000 / 1000 1000 / 1000 NS Inj 1,000 ML @ 100 mls/hr IV 1000 / 1000 1000 / 1000 .CONT .Q10H [facility] Rx#:[id number] Oral 480 / 480 Output: Urine 1000 / 1000 Other: # Urine Diapers 2 3 Date of Last Bowel Movement 06/19/18 06/19/18 06/19/18 # Bowel Movements 0 Narrative: GENERAL: Well-nourished, well-developed adult female in no obvious distress. SKIN: Focused assessment warm and dry. HEAD: Atraumatic. Normocephalic. CARDIOVASCULAR: Regular rate and rhythm. RESPIRATORY: No accessory muscle use. Clear to auscultation. Breath sounds equal bilaterally. GASTROINTESTINAL: Abdomen soft, non-tender, non-distended. Positive bowel sounds. MUSCULOSKELETAL: Extremities without clubbing, cyanosis, or edema. No obvious deformities. Limited lower extremity range of motion due to pain. Toes warm and well-perfused bilaterally. NEUROLOGICAL: Awake and alert. No obvious cranial nerve deficits. Motor grossly within normal limits. Normal speech. PSYCHIATRIC: Pleasant. Poor historian. Results Labs CBC & Chem 7: 06/22/18 06:20 06/22/18 06:20 Assessment and Plan (1) Closed fracture of pubic ramus: Code(s): S32.599A - Other specified fracture of unspecified pubis, initial encounter for closed fracture Status: Acute (2) Fall: Code(s): W19.XXXA - Unspecified fall, initial encounter Status: Acute (3) Dehydration: Code(s): E86.0 - Dehydration Status: Acute (4) HTN (hypertension): Code(s): I10 - Essential (primary) hypertension Status: Acute (5) COPD (chronic obstructive pulmonary disease): Code(s): J44.9 - Chronic obstructive pulmonary disease, unspecified Status: Acute (6) Tobacco abuse: Code(s): Z72.0 - Tobacco use Status: Acute Plan History of Present Illness: This is a 87-year-old female with a PMH of Dementia , COPD, h/o Breast CA and Tobacco Abuse who was brought to the ER from SNF after witnessed fall. Left pubic rami fracture; s/p mechanical fall -Orthopedics consulted; appreciate assistance -No intervention indicated at this time. Conservative management. -Pain control as needed -PT ordered Constipation -Refusing any treatment besides senna -Encourage fluids -Limit narcotics as much as possible while still maintaining pain control Hypertension; acute -Likely related to pain; now improved with pain control -No scheduled meds; PRN antihypertensives available if systolic greater than 180 COPD; chronic -DuoNeb's -O2 as needed. Titrate to maintain sats between 82 and 96% Osteoporosis -Follow-up as outpatient -Add calcium and vitamin D Dehydration; resolved -IVF fluid; now stopped -UA-negative for UTI Tobacco abuse -Counseled cessation -NicoDerm if needed DVT prophylaxis: SCD/teds Discharge planning: Patient lives at a SNF; will likely return there if rehab is available _ (1) Closed fracture of pubic ramus Qualifiers: Encounter type: Fracture healing: Laterality:
[2018-06-24] MEDS: Levothyroxine 50 MCG Tablet PO SCH (05:51)
[2018-06-24] MEDS: Senna/Docusate Sodium 8.6/50 MG Tablet PO SCH (08:25)
[2018-06-24 08:41] VITALS: RESP 20; O2SAT 97
--- NOTE | 2018-06-24 11:30 | P.PNOP ---
Subjective Interval history: Sitting up bedside in chair. States she continues to have pain over pelvis Physical Exam Vital signs: Vital Signs 06/23/18 12:00 06/23/18 15:46 06/23/18 16:00 Temperature 97.4 F L 98.0 F Pulse Rate 70 80 Respiratory Rate 18 20 Blood Pressure 129/79 132/58 L Pulse Oximetry 81 L 100 06/23/18 19:32 06/23/18 23:26 06/24/18 04:09 Temperature 97.7 F 97.7 F 97.8 F Pulse Rate 95 H 73 74 Respiratory Rate 18 Blood Pressure 139/64 112/57 L 142/66 H Pulse Oximetry 97 98 96 06/24/18 08:00 Temperature 97.5 F L Pulse Rate 62 Respiratory Rate 20 Blood Pressure 124/63 Pulse Oximetry 97 Intake & Output 06/23/18 06/24/18 06/24/18 18:59 06:59 18:59 Intake Total 480 / 480 480 / 480 Balance 480 / 480 480 / 480 Weight 52.3 kg Intake: Oral 480 / 480 480 / 480 Other: # Voids 2 2 Date of Last Bowel Movement 06/19/18 06/19/18 06/19/18 # Bowel Movements 0 Narrative: Pelvis pain anteriorly with palpation and active motion of the left hip. Mild tenderness with passive range of motion of the left hip. Intact sensation distally with good capillary refills with active dorsiflexion and plantarflexion of foot Results - Labs CBC & Chem 7: 06/22/18 06:20 06/22/18 06:20 Assessment and Plan - Assessment and Plan Left pubic rami fractures and symphysis fracture. Patient will be weightbearing as tolerated and will continue to follow conservative measures. No surgical intervention is needed at this time. She will continue to use a walker to help with ambulation. Pending on her progress Case management and physical therapy will decide on rehab versus home discharge.
[2018-06-24 12:14] VITALS: BP 126/55; PULSE 68; TEMP 98.2
--- NOTE | 2018-06-24 14:27 | P.PNIM ---
Subjective Interval history: F/u visit for left pubic rami fx, htn, copd Pt sitting in the chair, denies any pain or SOB Pt stated she is doing better, eating well, no nausea/vomiting, constipation or diarrhea Physical Exam Vital signs: Vital Signs 06/23/18 15:46 06/23/18 16:00 06/23/18 19:32 Temperature 98.0 F 97.7 F Pulse Rate 80 95 H Respiratory Rate 18 20 18 Blood Pressure 132/58 L 139/64 Pulse Oximetry 100 97 06/23/18 23:26 06/24/18 04:09 06/24/18 08:00 Temperature 97.7 F 97.8 F 97.5 F L Pulse Rate 73 74 62 Respiratory Rate 18 18 20 Blood Pressure 112/57 L 142/66 H 124/63 Pulse Oximetry 98 96 97 06/24/18 12:00 Temperature 98.2 F Pulse Rate 68 Respiratory Rate 20 Blood Pressure 126/55 L Pulse Oximetry 97 Intake & Output 06/23/18 06/24/18 06/24/18 18:59 06:59 18:59 Intake Total 480 / 480 480 / 480 Balance 480 / 480 480 / 480 Weight 52.3 kg Intake: Oral 480 / 480 480 / 480 Other: # Voids 2 2 Date of Last Bowel Movement 06/19/18 06/19/18 06/19/18 # Bowel Movements 0 Results Labs CBC & Chem 7: 06/22/18 06:20 06/22/18 06:20 Assessment and Plan (1) Closed fracture of pubic ramus: Code(s): S32.599A - Other specified fracture of unspecified pubis, initial encounter for closed fracture Status: Acute (2) Fall: Code(s): W19.XXXA - Unspecified fall, initial encounter Status: Acute (3) Dehydration: Code(s): E86.0 - Dehydration Status: Acute (4) HTN (hypertension): Code(s): I10 - Essential (primary) hypertension Status: Acute (5) COPD (chronic obstructive pulmonary disease): Code(s): J44.9 - Chronic obstructive pulmonary disease, unspecified Status: Acute (6) Tobacco abuse: Code(s): Z72.0 - Tobacco use Status: Acute _ (1) Closed fracture of pubic ramus Qualifiers: Encounter type: Fracture healing: Laterality:
--- NOTE | 2018-06-24 15:00 | P.DS ---
DS: Providers Date of admission: 06/21/18 21:14 Primary care physician: Marisol Gonzalez DO Consults: 06/21/18 21:21 Consult to Orthopedic Surgery Routine Consulting Provider: Frdedy Ga Reason for Consultation: Pubic Fx CONSULT FOR AM Notified:: Service Spoke with:: Yessi Date Notified:: 06/21/18 Time Notified:: 21:34 Ordering Provider: MARCIO Brief History from admission: This is a 87-year-old female with a PMH of Dementia, COPD, h/o Breast CA and Tobacco Abuse who was brought to the ER from SNF after witnessed fall. Pt reports legs "stopped working" and had mechanical fall, denies LOC or head trauma. +left buttock/hip pain, moderate, 8/10, non- radiating, worse w/ movement. On arrival, BP 152/68, HR 74, O2 sat 94% on RA, Afebrile. CBC unremarkable. INR 0.9. Chemistry essentially unremarkable except for GFR 77. UA negative for UTI. CXR with hyperinflation, lytic areas of bilateral humeral heads. Femur X-ray negative. CT Head negative. Pelvis X- ray with no definite fracture. Shoulder X-rays with no acute findings, lucencies probably related to patchy osteopenia. T Hip with nondisplaced fractures of pubic symphysis and left superior pubic ramus. Pt attempted ambulation in ER, however unsuccessful due to significant pain. DS: Diagnosis Discharge Diagnosis (1) Closed fracture of pubic ramus: Status: Acute (2) Fall: Status: Acute (3) Dehydration: Status: Acute (4) HTN (hypertension): Status: Acute (5) COPD (chronic obstructive pulmonary disease): Status: Acute (6) Tobacco abuse: Status: Acute DS: Summary This is a 87-year-old female with a PMH of Dementia, COPD, h/o Breast CA and Tobacco Abuse who was brought to the ER from SNF after witnessed fall. pt was admitted for Left pubic rami fracture; s/p mechanical fall, Orthopedics consulted,No intervention indicated at this time but Conservative management, Pain control as needed and PT ordered. Pt also was managed for Chronic problems COPD, Osteoporosis and Tobacco abuse. Pt had episode of acute Hypertension Likely related to pain; now improved with pain control DVT prophylaxis: SCD/teds Time Spent with Patient Total time spent providing and/or coordinating discharge services: Greater than 30 minutes Exam Narrative Exam Narrative: GENERAL: well developed, well nourished, female in no acute distress SKIN: Warm and dry. NECK: Trachea midline. No JVD. CARDIOVASCULAR: Regular rate and rhythm. RESPIRATORY: No accessory muscle use. Clear to auscultation. Breath sounds equal bilaterally. GASTROINTESTINAL: Abdomen soft, non-tender, nondistended. Hepatic and splenic margins not palpable. MUSCULOSKELETAL: Extremities without clubbing, cyanosis, or edema. No obvious deformities. NEUROLOGICAL: Awake and alert. No obvious cranial nerve deficits. Generalized weakness moving all 4 extremities with limited ROM on Left LE. Normal speech. PSYCHIATRIC: Appropriate mood and affect; insight and judgment normal. Results Impressions ITS Impressions Chest X-Ray 06/21/18 17:18 CONCLUSION: 1. Hyperinflation and chronic interstitial changes. 2. Lytic areas within both humeral heads of uncertain etiology. Recommend radiographs of the shoulders bilaterally. Femur X-Ray 06/21/18 17:18 CONCLUSION: No acute fracture left femur. Head CT 06/21/18 17:19 CONCLUSION: 1. No acute findings. . . Pelvis X-Ray 06/21/18 17:19 CONCLUSION: No definite fracture seen. Shoulder X-Ray 06/21/18 18:05 CONCLUSION: No acute findings. Lucencies are probably related to patchy osteopenia. Hip CT 06/21/18 19:02 CONCLUSION: 1. Nondisplaced fractures at the pubic symphysis and left superior pubic ramus as above. No fracture identified at the left hip. Old fracture inferior pubic ramus. Discharge Plan Discharge Disposition Patient Disposition: 64 [facility] Inpatient Discharge Condition Condition: Good Discharge Order Discharge Orders: Discharge Order (Routine); Ordered 06/24/18 Ordered By: Megan Boss [place] Discharge Details Anticipated Discharge Date: 06/24/18 Physicians Team ED Provider: Tierra Roger Primary Care Provider: Marisol Gonzalez Attending Provider: Sherrie Coughlin Other Providers: Freddy Ga Rxs /Orders / Referrals /Forms Prescriptions: New hydrocodone-acetaminophen 5-325 mg Tablet 1 tab PO Q6H PRN (Reason: Pain Scale 3 To 5) Qty: 12 RF: 0 Continue donepezil [Aricept] 10 mg Tablet 10 mg PO DAILY RF: 0 aspirin [Aspirin Low Dose] 81 mg Tablet,Delayed Release (Dr/Ec) 81 mg PO DAILY RF: 0 levothyroxine 50 mcg Tablet 50 mcg PO DAILY RF: 0 Discontinued alendronate 70 mg Tablet 70 mg PO QWEEK RF: 0 No Action sennosides-docusate sodium [Senna Plus] 8.6-50 mg tablet 1 tab PO BID RF: 0 Referrals: Marisol Gonzalez DO [Primary Care Provider] - See Instructions Freddy Ga MD [Physician] - See Instructions (2 weeks) Discharge Instructions Patient Printed Instructions: Pelvic Fracture (DC), Fall Prevention (DC), Deep Vein Thrombosis Prevention (DC) Additional Instructions: WEIGHT BEARING TOLERATED TAKE MEDS PRESCRIBED Post Discharge Care Plan Care Plan Goals: Your Health Problems: PELVIC FRACTURE Goals to Promote Your Health: * To prevent worsening of your condition * To maintain your health at the optimal level Directions to Meet Your Goals: * Take your medications as prescribed * Follow your dietary instruction * Follow activity as directed * Keep your appointments as scheduled * Take your immunizations and boosters as scheduled * If your symptoms worsen call your PCP * If no PCP go to Urgent Care or Emergency Room Smoking is dangerous to your health. Avoid second hand smoke. You may reach the 24-hour crisis hotline for domestic abuse at . Status ED Status: Left Department Discharge Information Discharge Date/Time: 06/24/18 15:30 Discharge Location: [facility]
== END 2018-06-24 15:30 | DRG 536 ==
LOC: NEPC 17:09 → NEDA 21:14 → N06 22:40
PROVIDERS: ADMIT Family Medicine; ATTEND Family Medicine
DX: K59.00 Constipation, unspecified; F17.210 Nicotine dependence, cigarettes, uncomplicated; Z85.3 Personal history of malignant neoplasm of breast; Z79.82 Long term (current) use of aspirin; Y92.129 Unspecified place in nursing home as the place of occurrence of the external cause; H35.30 Unspecified macular degeneration; F03.90 Unspecified dementia, unspecified severity, without behavioral disturbance, psychotic disturbance, mood disturbance, and anxiety; M81.0 Age-related osteoporosis without current pathological fracture; W18.30XA Fall on same level, unspecified, initial encounter; E86.0 Dehydration; S32.592A Other specified fracture of left pubis, initial encounter for closed fracture; J44.9 Chronic obstructive pulmonary disease, unspecified; I10 Essential (primary) hypertension; J96.10 Chronic respiratory failure, unspecified whether with hypoxia or hypercapnia
CPT/HCPCS: 70450; 71010; 71045; 72170; 73030; 73552; 73700; 80048; 80053; 81001; 85025; 85610; 85730; 90774; 90784; 96374; 97110; 97162; 97530; 99285; C8952; J2270; J7030